=== PATIENT | male | born 1955 | race Caucasian/White ===

== ENCOUNTER → 2016-08-12 09:42 | Outpatient (CLI) | payer MEDICARE ==
[~2016-08-12 09:42] MED LIST: CELEXA10 MG PO; FLUTICASONE PRO16 GM NASAL; LOPRESSOR25 MG PO; PEPCID20 MG PO; PHOSLO667 MG PO; PREDNISONE20 MG PO; TRAZODONE HCL50 MG PO; ULTRAM50 MG PO
[2016-08-26 07:32] VITALS: BMI 19.0
== END | disposition home or self-care (01) ==
LOC: D.RT 07-30 13:00 → D.RAD 07-30 14:00 → D.RT 09:42
DX: L92.9 Granulomatous disorder of the skin and subcutaneous tissue, unspecified (principal); M30.0 Polyarteritis nodosa

== ENCOUNTER 2016-08-26 06:17 | Day surgery (SDC) | payer BC, MEDICARE ==
[2016-08-25 16:17] LABS: BASOPHILS 0.1 % (0.0-2.0); EOSINOPHILS 0.3 % (0-7); HEMATOCRIT 38.6 % (42.0-54.0); HEMOGLOBIN 12.6 g/dL (13.5-17.5); IMMATURE GRANULOCYTES 2.8 % (0-5); LYMPHOCYTES 8.4 % (15-50); MCH 32.1 pg (26.0-34.0); MCHC 32.6 g/dL (31.0-37.0); MCV 98.5 fL (80.0-100.0); MEAN PLATELET VOLUME 9.8 fL (7.4-10.4); MONOCYTES 7.2 % (2-11); NEUTROPHILS 81.2 % (40-80); PLATELET COUNT 174 10x3/uL (130-400); RBC 3.92 10x6/uL (4.20-6.10); RDW 15.4 % (11.5-14.5); WBC 18.1 10x3/uL (4.8-10.8)
[2016-08-25 16:32] LABS: ANION GAP 14.9 mmol/L (8-16); CALCIUM 8.4 mg/dL (8.5-10.1); CARBON DIOXIDE 27.8 mmol/L (21.0-32.0); POTASSIUM - SERUM 3.7 mmol/L (3.5-5.1)
[2016-08-25 16:37] LABS: INR 1.42 (0.85-1.17); PROTIME 17.3 SECONDS (11.6-15.0)
[~2016-08-26] VITALS: Ht 172.7 cm; Wt 56.7 kg
[~2016-08-26 06:17] MED LIST changes: -ULTRAM50 MG PO
[2016-08-26 07:24] LABS: BASOPHILS 0.2 % (0.0-2.0); HEMATOCRIT 36.8 % (42.0-54.0); HEMOGLOBIN 11.7 g/dL (13.5-17.5); IMMATURE GRANULOCYTES 2.9 % (0-5); LYMPHOCYTES 21.9 % (15-50); MCH 31.5 pg (26.0-34.0); MCHC 31.8 g/dL (31.0-37.0); MCV 99.2 fL (80.0-100.0); MEAN PLATELET VOLUME 9.3 fL (7.4-10.4); MONOCYTES 7.7 % (2-11); NEUTROPHILS 66.3 % (40-80); PLATELET COUNT 161 10x3/uL (130-400); RBC 3.71 10x6/uL (4.20-6.10); RDW 15.4 % (11.5-14.5)
[2016-08-26 07:27] LABS: WBC 10.2 10x3/uL (4.8-10.8)
[2016-08-26 07:32] VITALS: BP 127/76; Ht 172.7 cm; Wt 56.7 kg
[2016-08-26 09:41] LABS: APTT > 200.0 SECONDS (22.8-39.4)
[2016-08-26] MEDS ORDERED: ULTRAM50 MG PO (09:54)
--- NOTE | 2016-08-26 11:22 | NUR ---
1105 RENAL DIET SERVED.
--- NOTE | 2016-09-02 14:04 | OP ---
PATIENT NAME: GABINO WILKINS MEDICAL RECORD: [id number] :59 LOCATION:[facility] ADMISSION DATE: SURGEON: SUZANNE VIERA MD DATE OF OPERATION: 08/26/2016 PREOPERATIVE DIAGNOSIS: End-stage renal disease, on dialysis via right internal jugular tunneled dialysis catheter. POSTOPERATIVE DIAGNOSIS: End-stage renal disease, on dialysis via right internal jugular tunneled dialysis catheter. OPERATION PERFORMED: Creation of a left wrist radiocephalic vein AV fistula. SURGEON: Suzanne Viera MD ANESTHESIA: Nerve block and IV sedation per TESTING MANAGER. PREOPERATIVE NOTE: Mr. Wilkins is a 60-year-old white male patient with end-stage renal disease on dialysis, who was to have a fistula created today. DESCRIPTION OF PROCEDURE: Under regional anesthesia with IV sedation in supine position, the patient was prepped and draped in sterile manner. Topical nitroglycerin was applied to the skin of the arm and forearm and a Codi drain used as a proximal venous tourniquet. The patient's veins stood up quite nicely. He had a very nice cephalic vein at the wrist which on ultrasound was not stenotic or obstructed up to the median cubital vein. There was a large basilic vein runoff probably the dominant runoff as well as the cephalic vein in the upper arm. I elected to go ahead with a wrist fistula. The patient had a good radial pulse and normal Wong test. A longitudinal incision made at the wrist was used to expose the radial artery and cephalic vein. The vein was dissected from the surrounding structures and its tributaries divided between Vicryl ties. It was treated with topical papaverine and periodically distended hydrostatically. The vein was closed distally with Hemoclips and then transected and beveled. It was then flushed with dilute heparin solution and again hydrostatic dilatation performed. The artery was controlled proximally and distally with doubly looped Silastic tapes. The artery was occluded and an arteriotomy made and the artery then flushed proximally and distally with heparinized saline and an end-to-side vein to artery anastomosis was then completed with a running 7-0 Prolene. When completed, the occluding loops were released, and excellent flow was immediately established in the new fistula. The suture line was hemostatic and there was good flow in the radial artery distal as well as proximal to the arterial anastomosis. The wounds were irrigated with saline and irrigated and infiltrated with 0.25% Marcaine without epinephrine. A large tributary vein on the dorsum of the forearm was exposed through a small incision and ligated with Vicryl and closed distally with a metallic Hemoclips to prevent diversion of flow. That incision was closed with interrupted inverted 3-0 Vicryl subcuticular suture and Dermabond glue. The wrist incision was closed with Vicryl and then running intracuticular Monocryl and Dermabond glue. Both incisions were dressed with Maxorb Ag, Tegaderm and Cavilon skin prep. There was excellent flow in the fistula by Doppler examination and palpable pulsation at the end of the wound closure. The patient was then taken to the recovery room in stable condition where he has a good audible bruit and good capillary refill in the hand. OPERATIVE REPORT [id number] GABINO WILKINS The patient will be discharged home today, but then appointment to return to see me in my office in approximately 2 weeks. He is given prescriptions for tramadol 50, #30 one p.o. q. 4 hours p.r.n. pain, no refills. He is to continue his home medications and renal diet, and dialysis schedule as previously. He can call me if he has any problems or concerns. He is to leave the original operative dressing intact until he returns to see me. TRANSINT:[id number] Voice Confirmation ID: [id number] DOCUMENT ID: [id number] SUZANNE VIERA MD at 1404 CC: [id number] DICTATION DATE: 08/26/16 1005 NET DEVELOPMENT MANAGER: 08/26/16 1123 [facility] 08/26/16 [place] [id number]
== END 2016-08-26 12:30 | disposition home or self-care (01) ==
LOC: D.OPS 06:17 → D.PAN 08:00 → D.OPS 08:00
PROVIDERS: Surgery
DX: N18.6 End stage renal disease (principal); Z99.2 Dependence on renal dialysis

== ENCOUNTER 2016-12-25 05:59 | Emergency (ER) | payer BC, MEDICARE ==
[2016-08-26 07:32] VITALS: BMI 19.0
[~2016-12-25 05:59] MED LIST changes: +ULTRAM50 MG PO
[2016-12-25 06:32] LABS: BASOPHILS 0.2 % (0-2); EOSINOPHILS 3.7 % (0-7); HEMATOCRIT 39.5 % (42.0-54.0); HEMOGLOBIN 12.4 g/dL (13.5-17.5); IMMATURE GRANULOCYTES 0.4 % (0-5); LYMPHOCYTES 38.5 % (15-50); MCH 30.9 pg (26.0-34.0); MCHC 31.4 g/dL (31.0-37.0); MCV 98.5 fL (80.0-100.0); MEAN PLATELET VOLUME 9.9 fL (7.4-10.4); NEUTROPHILS 48.2 % (40-80); PLATELET COUNT 172 10x3/uL (130-400); RBC 4.01 10x6/uL (4.20-6.10); RDW 13.3 % (11.5-14.5); WBC 8.5 10x3/uL (4.8-10.8)
[2016-12-25 06:49] LABS: ALBUMIN 3.4 g/dL (3.4-5.0); ANION GAP 16.7 mmol/L (8-16); BILIRUBIN - TOTAL 0.32 mg/dL (0.2-1.3); CALCIUM 9.7 mg/dL (8.5-10.1); CARBON DIOXIDE 28.1 mmol/L (21.0-32.0); CREATININE - SERUM 7.3 mg/dL (0.6-1.3); POTASSIUM - SERUM 4.8 mmol/L (3.5-5.1); PROTEIN - SERUM 6.6 g/dL (6.4-8.2)
[2016-12-25 07:09] LABS: AMYLASE - SERUM 115 U/L (25-115); LIPASE 287 U/L (73-393)
[2016-12-25 07:33] LABS: APPEARANCE SLT CLOUDY (CLEAR); BACTERIA FEW /hpf (NONE SEEN); BILIRUBIN NEGATIVE (NEGATIVE); COLOR YELLOW (YELLOW); EPITHELIAL CELLS OCC /hpf (0-5); GLUCOSE NEGATIVE (NEGATIVE); KETONE NEGATIVE (NEGATIVE); LEUKOCYTE ESTERASE TRACE (NEGATIVE); NITRITE NEGATIVE (NEGATIVE); PROTEIN 3+ mg/dL (NEGATIVE); RED CELLS - URINE 25-50 /hpf (0-5); UROBILINOGEN NORMAL (NORMAL); WHITE CELLS - URINE 0-5 /hpf (0-5)
[2016-12-25 07:36] LABS: AMORPHOUS SEDIMENT <1+ /lpf (NONE SEEN); GRANULAR CAST 0-5 /lpf (NONE SEEN); MUCUS <1+ /lpf (NONE SEEN); RED CELL CAST RARE /lpf (NONE SEEN)
== END 2016-12-25 12:19 | disposition home or self-care (01) ==
LOC: D.ER 05:59
PROVIDERS: Family Medicine
DX: K52.9 Noninfective gastroenteritis and colitis, unspecified (principal); F17.200 Nicotine dependence, unspecified, uncomplicated; I12.9 Hypertensive chronic kidney disease with stage 1 through stage 4 chronic kidney disease, or unspecified chronic kidney disease; N18.9 Chronic kidney disease, unspecified; Z99.2 Dependence on renal dialysis

== ENCOUNTER 2017-02-27 18:26 | Emergency (ER) | payer BC, MEDICARE ==
[2016-08-26 07:32] VITALS: BMI 19.0
[2017-02-27 19:43] LABS: BASOPHILS 0.2 % (0-2); EOSINOPHILS 3.5 % (0-7); HEMATOCRIT 36.4 % (42.0-54.0); HEMOGLOBIN 11.5 g/dL (13.5-17.5); LYMPHOCYTES 36.9 % (15-50); MCH 30.8 pg (26.0-34.0); MCHC 31.6 g/dL (31.0-37.0); MCV 97.6 fL (80.0-100.0); MEAN PLATELET VOLUME 9.5 fL (7.4-10.4); MONOCYTES 9.8 % (2-11); NEUTROPHILS 47.6 % (40-80); PLATELET COUNT 199 10x3/uL (130-400); RBC 3.73 10x6/uL (4.20-6.10); RDW 12.8 % (11.5-14.5); WBC 9.5 10x3/uL (4.8-10.8)
== END 2017-02-27 21:24 | disposition home or self-care (01) ==
LOC: D.ER 18:26
PROVIDERS: Family Medicine
DX: L76.22 Postprocedural hemorrhage of skin and subcutaneous tissue following other procedure (principal); Z99.2 Dependence on renal dialysis; I12.9 Hypertensive chronic kidney disease with stage 1 through stage 4 chronic kidney disease, or unspecified chronic kidney disease; N18.9 Chronic kidney disease, unspecified

== ENCOUNTER → 2017-08-07 09:40 | Outpatient (CLI) | payer BC, MEDICARE ==
[2016-08-26 07:32] VITALS: BMI 19.0
== END | disposition home or self-care (01) ==
LOC: D.US 08-05 13:00
DX: R42 Dizziness and giddiness (principal)

== ENCOUNTER 2017-09-16 08:56 | Emergency (ER) | payer BC, MEDICARE ==
[2016-08-26 07:32] VITALS: BMI 19.0
[2017-09-16 09:19] LABS: BASOPHILS 0.1 % (0-2); EOSINOPHILS 0.9 % (0-7); HEMATOCRIT 37.5 % (42.0-54.0); HEMOGLOBIN 11.9 g/dL (13.5-17.5); IMMATURE GRANULOCYTES 0.4 % (0-5); LYMPHOCYTES 21.1 % (15-50); MCH 31.2 pg (26.0-34.0); MCHC 31.7 g/dL (31.0-37.0); MCV 98.2 fL (80.0-100.0); MEAN PLATELET VOLUME 9.3 fL (7.4-10.4); MONOCYTES 7.7 % (2-11); NEUTROPHILS 69.8 % (40-80); PLATELET COUNT 165 10x3/uL (130-400); RBC 3.82 10x6/uL (4.20-6.10); RDW 13.5 % (11.5-14.5); WBC 12.3 10x3/uL (4.8-10.8)
[2017-09-16 09:34] LABS: ALBUMIN 3.5 g/dL (3.4-5.0); BILIRUBIN - TOTAL 0.49 mg/dL (0.2-1.3); CALCIUM 8.6 mg/dL (8.5-10.1); CREATININE - SERUM 5.7 mg/dL (0.6-1.3)
[2017-09-16 10:33] LABS: APPEARANCE HAZY (CLEAR); BACTERIA FEW /hpf (NONE SEEN); BILIRUBIN NEGATIVE (NEGATIVE); COLOR YELLOW (YELLOW); EPITHELIAL CELLS 0-5 /hpf (0-5); GLUCOSE 50 mg/dL (NEGATIVE); KETONE NEGATIVE (NEGATIVE); MUCUS <1+ /lpf (NONE SEEN); NITRITE NEGATIVE (NEGATIVE); PROTEIN 3+ mg/dL (NEGATIVE); SPECIFIC GRAVITY 1.005 (1.005-1.020); UROBILINOGEN NORMAL (NORMAL)
[2017-09-16 10:34] LABS: GRANULAR CAST OCC /lpf (NONE SEEN)
== END 2017-09-16 10:17 | disposition home or self-care (01) ==
LOC: D.ER 08:56
PROVIDERS: Emergency Medicine
DX: R11.10 Vomiting, unspecified (principal); R10.9 Unspecified abdominal pain; Z99.2 Dependence on renal dialysis; I12.9 Hypertensive chronic kidney disease with stage 1 through stage 4 chronic kidney disease, or unspecified chronic kidney disease; N18.9 Chronic kidney disease, unspecified

== ENCOUNTER → 2017-10-05 09:32 | Outpatient (CLI) | payer BC, MEDICARE ==
[2016-08-26 07:32] VITALS: BMI 19.0
== END | disposition home or self-care (01) ==
LOC: D.CT 09:32
DX: R31.9 Hematuria, unspecified (principal); R10.30 Lower abdominal pain, unspecified

== ENCOUNTER → 2017-10-28 10:09 | Outpatient (CLI) | payer BC, MEDICARE ==
[2016-08-26 07:32] VITALS: BMI 19.0
[2017-11-02 18:09] LABS: ANCA - ANTIMYELOPEROXIDASE <9.0 U/mL (0.0-9.0); ANCA - ANTIPROTEINASE 3 <3.5 U/mL (0.0-3.5); ANCA - ATYPICAL <1:20 titer (Neg:<1:20); ANCA - CYTOPLASMIC <1:20 titer (Neg:<1:20); ANCA - PERINUCLEAR 1:40 titer (Neg:<1:20)
== END | disposition home or self-care (01) ==
LOC: D.LABREF 10:09
PROVIDERS: Internal Medicine Nephrology
DX: A50.02 Early congenital syphilitic osteochondropathy (principal)

== ENCOUNTER → 2017-11-26 07:49 | Outpatient (CLI) | payer BC, MEDICARE ==
[2016-08-26 07:32] VITALS: BMI 19.0
== END | disposition home or self-care (01) ==
LOC: D.RT 07:49
DX: M31.30 Wegener's granulomatosis without renal involvement (principal)

== ENCOUNTER → 2018-11-04 11:49 | Outpatient (CLI) | payer BC, MEDICARE ==
[2016-08-26 07:32] VITALS: BMI 19.0
== END | disposition home or self-care (01) ==
LOC: D.RAD 11:49
PROVIDERS: ATTEND Internal Medicine Nephrology
DX: R07.81 Pleurodynia (principal)

== ENCOUNTER → 2018-11-16 09:46 | Outpatient (CLI) | payer BC, MEDICARE ==
[2016-08-26 07:32] VITALS: BMI 19.0
[~2018-11-16 09:46] MED LIST changes: +BREO ELLIPTA 11 EACH INH; +CARDURA8 MG PO; +FAMOTIDINE10 MG PO; +LISINOPRIL10 MG PO; +PEPCID AC20 MG PO; -PEPCID20 MG PO; +PRINIVIL10 MG PO; +REQUIP0.5 MG PO; +REVATIO20 MG PO; +STERAPRED DS 1210 MG PO; +VIBRAMYCIN 100100 MG PO
== END | disposition home or self-care (01) ==
LOC: D.RAD 09:46
PROVIDERS: ATTEND Internal Medicine Pulmonary Disease
DX: R06.09 Other forms of dyspnea (principal)

== ENCOUNTER 2018-11-22 04:05 | Inpatient (IN) | payer BC, MEDICARE ==
[~2018-11-22] VITALS: Ht 170.2 cm; Wt 56.7 kg
[~2018-11-22 04:05] MED LIST changes: -BREO ELLIPTA 11 EACH INH; -CARDURA8 MG PO; -LISINOPRIL10 MG PO; -PEPCID AC20 MG PO; -PRINIVIL10 MG PO; -REQUIP0.5 MG PO; -REVATIO20 MG PO; -STERAPRED DS 1210 MG PO; -VIBRAMYCIN 100100 MG PO
[2018-11-22] MEDS ORDERED: REQUIP0.5 MG PO (04:19)
[2018-11-22] MEDS ORDERED: CARDURA8 MG PO (04:20)
[2018-11-22] MEDS ORDERED: VIBRAMYCIN 100100 MG PO (04:21)
[2018-11-22] MEDS ORDERED: PRINIVIL10 MG PO (04:23)
[2018-11-22] MEDS ORDERED: REVATIO20 MG PO (04:23)
[2018-11-22] MEDS ORDERED: PEPCID AC20 MG PO (04:24)
[2018-11-22 04:30] LABS: BASOPHILS 0.2 % (0-2); EOSINOPHILS 1.7 % (0-7); HEMATOCRIT 30.5 % (42.0-54.0); HEMOGLOBIN 9.8 g/dL (13.5-17.5); IMMATURE GRANULOCYTES 0.2 % (0-5); LYMPHOCYTES 28.1 % (15-50); MCH 30.6 pg (26.0-34.0); MCHC 32.1 g/dL (31.0-37.0); MCV 95.3 fL (80.0-100.0); MONOCYTES 4.5 % (2-11); NEUTROPHILS 65.3 % (40-80); PLATELET COUNT 143 10x3/uL (130-400); RDW 12.9 % (11.5-14.5); WBC 9.4 10x3/uL (4.8-10.8)
[2018-11-22 04:45] LABS: ALKALINE PHOSPHATASE 52 U/L (46-116); ALT (SGPT) 27 U/L (10-68); BILIRUBIN - TOTAL 0.41 mg/dL (0.2-1.3); CALC OSMOLALITY 300 mosm/kg (275-300); CALCIUM 8.6 mg/dL (8.5-10.1); CARBON DIOXIDE 23.8 mmol/L (21.0-32.0); CHLORIDE - SERUM 104 mmol/L (98-107); GLUCOSE 114 mg/dL (74-106); POTASSIUM - SERUM 5.5 mmol/L (3.5-5.1); PROTEIN - SERUM 6.2 g/dL (6.4-8.2); SODIUM 140 mmol/L (136-145); UREA NITROGEN 70 mg/dL (7-18); eGFR NON AFRICAN AMERICAN 5 mL/min (90-120)
--- NOTE | 2018-11-22 04:46 | NUR ---
LAB AT PT BEDSIDE. BLOOD CULTURES OBTAINED.
[2018-11-22 04:49] LABS: APTT 27.9 SECONDS (22.8-39.4); INR 1.09 (0.85-1.17); PROTIME 13.6 SECONDS (11.6-15.0)
[2018-11-22 05:11] LABS: CKMB 2.6 U/L (0.0-3.6); CREATINE KINASE 81 UL (21-232); PRO BNP 84257 pg/mL (0-125)
[2018-11-22 05:13] LABS: TROPONIN-I 0.111 ng/mL (0.000-0.060)
[2018-11-22] MEDS ORDERED: STERAPRED DS 1210 MG PO (06:50)
[2018-11-22] MEDS ORDERED: LISINOPRIL10 MG PO (06:50)
--- NOTE | 2018-11-22 07:32 | NUR ---
MORNING ROUNDS MADE. PT SITTING UP ON SIDE OF BED. DENIES PAIN AT THIS TIME. BREATHING LABORED. 2L 02 VIA NC. PT CONNECTED TO CONTINOUS O2 MONITORING. 02 SAT, 92%. DENIES FURTHER NEEDS AT THIS TIME. FALL PRECAUTIONS IN PLACE. BED LOWERED AND LOCKED. CL IN REACH. WILL CTM.
[2018-11-22 07:42] VITALS: BP 135/94
--- NOTE | 2018-11-22 08:40 | NUR ---
PT SITTING UP ON SIDE OF BED. STATES THAT HE CANT CATCH HIS BREATH, PT O2 SAT 87% ON 2L NC, RAISED PT TO 7L 02 HIGH FLOW TO RAISE O2 TO 92%. INFORMED PT TO BREATHE IN THROUGH NOSE AND OUT THROUGH MOUTH. PT APEARS ANXIOUS. NO MEDICAITON ODERS. WILL CONTACT MD FOR ORDERS.
--- NOTE | 2018-11-22 08:51 | NUR ---
CALLED DR. SANCHEZ OFFICE, SPOKE TO NURSE VEGA AND LEFT A MESSAGE WITH HER TO LEAVE WITH DR. SANCHEZ. SHE STATED SHE OR DR. SANCHEZ WOULD GET BACK WITH ME ABOUT GETTING PT ANXIETY MEDS. SHE STATED THAT DR. SANCHEZ WASNT IN THE CLINIC AT THIS TIME. NO ORDERS GIVEN AT THIS TIME.
--- NOTE | 2018-11-22 09:13 | MORECARE ---
CASE MANAGEMENT DISCHARGE SUMMARY PATIENT: GABINO MCLAUGHLIN UNIT: [id number] ADM DATE: 11/22/18 AGE: 63 : 59 SEX: M ROOM/BED: D.1211 AUTHOR: SHAWN RUSSO PHYSICIAN: REFERRING PHYSICIAN: PORSHA SANCHEZ MD DATE OF SERVICE: 11/22/18 Discharge Plan Patient Name: GABINO MCLAUGHLIN Facility: [facility]:[place] : 1955 Planned Disposition: Home Anticipated Discharge Date: Discharge Date: Expected LOS: Initial Reviewer: [email or web address] Initial Review Date: 11/22/2018 Generated: 11/22/18 10:13 am Patient Name: GABINO MCLAUGHLIN Page [phone] at 0913 All edits/amendments must be made on the electronic document DICTATION DATE: 11/22/18911 MEDICAL RECORDS ADMINISTRATOR: SANDEEP 11/22/18911 RPT#: [id number] DC DATE: STATUS: ADM IN [facility] [address] [place] [address] END OF REPORT
[2018-11-22 09:16] VITALS: BP 183/101; BMI 19.6
--- NOTE | 2018-11-22 09:20 | MORECARE ---
CASE MANAGEMENT DISCHARGE SUMMARY PATIENT: GABINO MCLAUGHLIN UNIT: [id number] ADM DATE: 11/22/18 AGE: 63 : 59 SEX: M ROOM/BED: D.1211 AUTHOR: SHAWN RUSSO PHYSICIAN: REFERRING PHYSICIAN: PORSHA SANCHEZ MD DATE OF SERVICE: 11/22/18 Discharge Plan Patient Name: GABINO MCLAUGHILN Facility: [facility]:[place] : 1955 Planned Disposition: Home Anticipated Discharge Date: Discharge Date: Expected LOS: Initial Reviewer: [email or web address] Initial Review Date: 11/22/2018 Generated: 11/22/18 10:20 am DCP- Discharge Planning Updated by [email or web address]: Enid Mills on 11/22/18 8:[address] Patient Name: GABINO MCLAUGHLIN Admission Status: ER Accout number: [id number] Admission Date: 11-22-2018 : 1955 Admission Diagnosis: Attending: PORSHA SANCHEZ Current LOS: 1 Anticipated DC Date: Planned Disposition: Home Primary Insurance: [employer] OUT OF STATE Discharge Planning Comments: CM met with patient to complete initial dc planning assessment. CM educated patient on the CM role and verbal consent given by patient to complete assessment. CM verified patient's address, phone number, and emergency contact phone numbers. Patient lives at home with FAMILY and reports He is independent in his care. At discharge patient plans to return home and feels this is a safe discharge. CM discussed availability of home health, rehab services, and medical equipment. Patient denied known discharge needs at this time. Patient reports spouse Aimee [phone] will transport her home at time of discharge. CM will continue to follow and will assist as needed with dc plans/needs. Salon Sales Consultant: Enid Mills DCPIA - Discharge Planning Initial Assessment Updated by [email or web address]: Enid Mills on 11/22/18 9:13 am * Is the patient Alert and Oriented? Yes * How many steps to enter\exit or inside your home? * PCP tara * [facility] * Preadmission Environment Home with Family * ADLs Independent * Verbal permission to speak to the caregivers and representatives has been obtained from the patient. N/A * Additional services required to return to the preadmission environment? No * Can the patient safely return to the preadmission environment? Yes * Has this patient been hospitalized within the prior 30 days at any hospital? No Last DP export: 11/22/18 8:13 a Patient Name: GABINO MCLAUGHLIN Page 30909 at 0920 All edits/amendments must be made on the electronic document DICTATION DATE: 11/22/18919 TENTERER: SANDEEP 11/22/18919 RPT#: [id number] DC DATE: STATUS: ADM IN [facility] [address] [place] [address] END OF REPORT
--- NOTE | 2018-11-22 09:26 | NUR ---
CALLED [facility] AND GOT UPDATED MED LIST FOR DR. SANCHEZ. MED REC UPDATED ON PT CHART. WILL NOTIFIY DR. SANCHEZ.
[2018-11-22] MEDS ORDERED: BREO ELLIPTA 11 EACH INH (09:34)
--- NOTE | 2018-11-22 09:37 | NUR ---
SPOKE WITH GARY AT DR. MATHEWS OFFICE, INFORMED HER THAT I UPDATED PT MED LIST AND SHE STATED THAT SHE WOULD LET DR. SANCHEZ KNOW. NO FURTHER ODERES AT THIS TIME. WILL CTM.
--- NOTE | 2018-11-22 10:01 | NUR ---
PT TOOK MEDS WITHOUT DIFFICULTY. PT SITTING UP ON SIDE OF BED. AT BEDSIDE. DENIES PAIN AT THIS TIME. BREATHING SHALLOW. O2 7L HIGH FLOW. WILL CTM. CL IN REACH.
[2018-11-22 11:57] VITALS: BP 134/66
[2018-11-22 14:47] VITALS: Ht 170.2 cm; Wt 56.7 kg
--- NOTE | 2018-11-22 15:26 | NUR ---
PT TO HD VIA WHEELCHAIR.
[2018-11-22 15:41] VITALS: BP 108/73
--- NOTE | 2018-11-22 18:59 | NUR ---
PT BACK TO ROOM FROM
[2018-11-22 21:00] VITALS: BP 121/80
--- NOTE | 2018-11-22 21:05 | NUR ---
PT UP WALKING AROUND IN ROOM WITH STANDBY ASSIST ALERT AND ORIENTED X4. PT O2-96% NO S/S OF DISTRESS AT THIS TIME. BED LOW CALL LIGHT WITHIN REACH. WILL CONTINUE TO MONITOR.
[2018-11-23 00:49] VITALS: BP 106/65
[2018-11-23 04:30] VITALS: BP 116/73
--- NOTE | 2018-11-23 04:48 | NUR ---
I have reviewed this patient and I concur with the Shift Assessment completed by the Licensed Practical Nurse today this shift.
[2018-11-23 06:53] LABS: BASOPHILS 0 % (0-2); EOSINOPHILS 0 % (0-7); HEMATOCRIT 31.5 % (42.0-54.0); HEMOGLOBIN 10.1 g/dL (13.5-17.5); IMMATURE GRANULOCYTES 0.1 % (0-5); LYMPHOCYTES 6.6 % (15-50); MCH 30.7 pg (26.0-34.0); MCHC 32.1 g/dL (31.0-37.0); MCV 95.7 fL (80.0-100.0); MEAN PLATELET VOLUME 10.2 fL (7.4-10.4); MONOCYTES 3.1 % (2-11); NEUTROPHILS 90.2 % (40-80); PLATELET COUNT 135 10x3/uL (130-400); RBC 3.29 10x6/uL (4.20-6.10); RDW 13.2 % (11.5-14.5)
[2018-11-23 07:29] LABS: ANION GAP 19.8 mmol/L (8-16); CALCIUM 8.7 mg/dL (8.5-10.1); CARBON DIOXIDE 26.2 mmol/L (21.0-32.0); CREATININE - SERUM 9.2 mg/dL (0.6-1.3)
[2018-11-23 07:32] VITALS: BP 100/63
--- NOTE | 2018-11-23 07:46 | NUR ---
MORNING ROUNDS MADE. PT SITTING UP IN BED RESTING. DENIES PAIN AT THIS TIME. PT STATES "I FEEL MUCH BETTER TODAY" VITALS STABLE AT THIS TIME. FALL PRECAUTIONS IN PLACE. BED LOWERED AND LOCKED. CL IN REACH. WILL CTM.
--- NOTE | 2018-11-23 08:39 | NUR ---
VITALS STABLE. PT TOOK MEDS THIS AM WITH BREAKFAST WITHOUT ANY DIFFICULTY. AT BEDSIDE. PT STATES HE WOULD LIKE TO GO FOR A WALK. WILL ASSIST PT WITH AMBULATION AFTER MORNING ROUNDS. NO FURTHER CONCERNS AT THIS TIME. FALL PRECAUTIONS IN PLACE. YELLOW GOWN ON. NON SKID SOCKS/ AND HOUSE SLIPPERS ON. BED LOWERED AND LOCKED. CL IN [facility]. WILL CTM .
--- NOTE | 2018-11-23 08:41 | HP ---
PATIENT: GABINO MCLAUGHLIN MEDICAL RECORD: [id number] ACCOUNT: [id number] LOCATION:D. D.1211 : [birth year] ADMISSION DATE: 11/22/18 PCP: PORSHA SANCHEZ MD HISTORY AND PHYSICAL EXAMINATION DATE OF ADMISSION: 11/22/2018 CHIEF COMPLAINT: Shortness of breath. 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 He has been on dialysis for 2-1/2 years. He has also seen Dr. Centeno for asthma/COPD. He presented to the ER with acute onset of shortness of breath. He states it comes and goes over the last couple of days. He denies any fever, but has had a few chills, no nausea, no vomiting. He is scheduled for dialysis today. Chest x-ray compared to one done recently at [facility] showed interval development of worsening patchy airspace disease in right lower lobe and left lower lobe with pulmonary edema as well. He is admitted for further evaluation and treatment. PAST MEDICAL AND SURGICAL HISTORY: He was diagnosed with Sonja's granulomatosis. In late 2015, he underwent plasmapheresis and underwent 4 doses of Rituxan. His kidney function progressively worsened and he had to be placed on dialysis. He also has reflux, anxiety, asthma and COPD. PAST SURGICAL HISTORY: He had an IVC filter placed and then removed. ALLERGIES: IT HAS BEEN REPORTED THAT HE HAS AN ALLERGY TO CODEINE, ATIVAN AND DEMEROL. I DID NOT HAVE THOSE IN MY CHART. HABITS: Former smoker, no alcohol or drugs. SOCIAL HISTORY: . He is on disability due to his medical problems. FAMILY HISTORY: Father at 64 of lung problems. Mother with history of hypertension and anxiety. REVIEW OF SYSTEMS: GENERAL: No major weight changes. HEENT: No particular sinus or allergy problems. RESPIRATORY: He sees Dr. Centeno and he has been diagnosed with asthma/COPD. GASTROINTESTINAL: He has heartburn. CARDIAC: No history of heart trouble. GENITOURINARY: No significant problems there. MUSCULOSKELETAL: No arthritic aches and pains. NEUROLOGIC: No migraines or seizures. PSYCHIATRIC: He has some anxiety/depression. HOME MEDICATIONS: Shows he is on prednisone 10 mg a day, trazodone 50 mg 1-1/2 pills at bedtime, Pepcid 20 mg twice a day, citalopram 10 mg once a day, calcium acetate 667 mg 3 capsules 3 times a day, he is on lisinopril of unknown dose on days that he is not taking dialysis. PHYSICAL EXAMINATION: VITAL SIGNS: Temperature 98.2, pulse 112, respirations 20, blood pressure 183/101, O2 sat 93% and he is up to 7 liters according to the nurse. HISTORY AND PHYSICAL [id number] GABINO MCLAUGHLIN GENERAL: He is sitting on the side of the bed, leaning over on the bedside tray. He is awake and alert, able to converse. HEENT: Grossly within normal limits. NECK: Supple. No JVD or bruit. HEART: Tachycardic. LUNGS: With scattered rales. No wheeze. ABDOMEN: Soft. EXTREMITIES: No edema. LABORATORY DATA: ABG; pH 7.47, pCO2 33.9, pO2 38. Lactic acid 1.6. CBC with a white count of 9400, hemoglobin 9.8, hematocrit 30.5. Basic metabolic panel; sodium 140, potassium 5.5, chloride 104, CO2 23.8, BUN 70, creatinine 11, glucose 114, calcium 8.6. Liver functions are normal. Troponin is elevated at 0.111. Chest x-ray with interval development of worsening patchy airspace disease, and right lower lobe and left lower lobe pulmonary edema is noted. ASSESSMENT: 1. Pneumonia. 2. Pulmonary edema. 3. Vasculitis. 4. End-stage renal disease, on dialysis. PLAN: Nephrology has been consulted. Pulmonology is being consulted. He is started on Rocephin and Zithromax, given albuterol, blood cultures times 2. We need to find out if he is truly ALLERGIC TO ATIVAN or not. Other tests and procedures as warranted. TRANSINT:[id number] Voice Confirmation ID: [id number] DOCUMENT ID: [id number] PORSHA SANCHEZ MD at 0841 CC: [id number] DICTATION DATE: 11/22/18 0937 CREELER: 11/22/18 1023 ADM IN [facility] [address] [place] [address]
--- NOTE | 2018-11-23 09:26 | NUR ---
PT TO X RAY VIA WHEELCHAIR
--- NOTE | 2018-11-23 09:41 | NUR ---
PT ON 3L O2 VIA HIGH FLOW NC. PT O2 SAT 98%, BUMPED PT O2 DOWN TO 2L VIA NC, PT O2 SAT 97 % AT THIS TIME ON 2L. WILL CONTINUE TO MONITOR PT OXYGEN.
--- NOTE | 2018-11-23 10:02 | NUR ---
PT O2 BUMPED DOWN TO 1L NC, PT O2 SAT 96 % ON 1L VIA NC. WILL CONTINUE TO MONITOR OXYGEN.
--- NOTE | 2018-11-23 10:03 | NUR ---
PT RECEIVING BREATHING TREATMENT AT THIS TIME.
--- NOTE | 2018-11-23 10:40 | NUR ---
PATIENT TAKEN OFF OXYGEN, O2 SAT 95%. PT WALKING AROUND [place], DENIES BEING SOB. YELLOW GOWN ON. NON SKID SOCKS AND HOUSE SLIPPERS ON. WALKING WITH PT. GAIT STEADY. WILL CTM.
[2018-11-23 14:50] VITALS: BP 113/70
--- NOTE | 2018-11-23 15:56 | NUR ---
I have reviewed this patient and I concur with the Shift Assessment completed by the Licensed Practical Nurse today this shift.
--- NOTE | 2018-11-23 18:56 | NUR ---
PT IN BED. DENIES NEEDS AT THIS TIME.
[2018-11-23 20:00] VITALS: BP 116/60
[2018-11-24 04:00] VITALS: BP 115/64
[2018-11-24 07:01] LABS: BASOPHILS 0 % (0-2); EOSINOPHILS 0 % (0-7); HEMOGLOBIN 9.1 g/dL (13.5-17.5); IMMATURE GRANULOCYTES 0.4 % (0-5); LYMPHOCYTES 3.3 % (15-50); MCH 31.1 pg (26.0-34.0); MCHC 32.5 g/dL (31.0-37.0); MCV 95.6 fL (80.0-100.0); MEAN PLATELET VOLUME 10.9 fL (7.4-10.4); NEUTROPHILS 93.3 % (40-80); PLATELET COUNT 154 10x3/uL (130-400); RBC 2.93 10x6/uL (4.20-6.10); RDW 13.5 % (11.5-14.5)
[2018-11-24 07:04] LABS: WBC 12.9 10x3/uL (4.8-10.8)
[2018-11-24 07:16] LABS: ANION GAP 19.1 mmol/L (8-16); CALCIUM 7.9 mg/dL (8.5-10.1); CARBON DIOXIDE 22.1 mmol/L (21.0-32.0); CREATININE - SERUM 10.9 mg/dL (0.6-1.3); PHOSPHOROUS 6.2 mg/dL (2.5-4.9); POTASSIUM - SERUM 5.2 mmol/L (3.5-5.1)
[2018-11-24 07:36] VITALS: BP 104/62
--- NOTE | 2018-11-24 07:46 | NUR ---
MORNING ROUNDS MADE. PT SITTING UP IN BED EATING BREAKFAST. DENIES PAIN AT THIS TIME. BREATHING EVEN AND UNLABORED. BED LOWERED AND LOCKED. CL IN REACH. WILL CTM .
--- NOTE | 2018-11-24 09:05 | NUR ---
VITALS STABLE. TOOK MEDS WITHOUT DIFFICULTY. DENIES FURTHER NEEDS AT THIS TIME. BED LOWERED AND LOCKED. CL IN REACH. WILL CTM.
--- NOTE | 2018-11-24 09:58 | NUR ---
PT TO HD VIA WHEELCHAIR
--- NOTE | 2018-11-24 12:34 | NUR ---
NEW LINENS APPLIED TO PT BED
--- NOTE | 2018-11-24 13:23 | NUR ---
PT BACK FROM HD VIA WHEELCHAIR.
[2018-11-24 16:02] VITALS: BP 80/52
--- NOTE | 2018-11-24 18:00 | NUR ---
I have reviewed this patient and I concur with the Shift Assessment completed by the Licensed Practical Nurse today this shift.
--- NOTE | 2018-11-24 18:12 | NUR ---
PT CURRENTLY HAVING CXR DONE IN ROOM
--- NOTE | 2018-11-24 19:00 | NUR ---
PT IN BED. DENIES NEEDS AT THIS TIME.
[2018-11-24 19:49] VITALS: BP 105/68
[2018-11-25] VITALS: BP 113/67
[2018-11-25 04:00] VITALS: BP 103/65
[2018-11-25 06:16] LABS: BASOPHILS 0 % (0-2); EOSINOPHILS 0 % (0-7); HEMATOCRIT 29.4 % (42.0-54.0); HEMOGLOBIN 9.6 g/dL (13.5-17.5); IMMATURE GRANULOCYTES 0.3 % (0-5); LYMPHOCYTES 2.8 % (15-50); MCH 31.2 pg (26.0-34.0); MCHC 32.7 g/dL (31.0-37.0); MCV 95.5 fL (80.0-100.0); MEAN PLATELET VOLUME 11.1 fL (7.4-10.4); MONOCYTES 2.1 % (2-11); NEUTROPHILS 94.8 % (40-80); PLATELET COUNT 146 10x3/uL (130-400); RBC 3.08 10x6/uL (4.20-6.10); RDW 13.5 % (11.5-14.5); WBC 12.5 10x3/uL (4.8-10.8)
[2018-11-25 06:45] LABS: ANION GAP 20.1 mmol/L (8-16); CALCIUM 8.6 mg/dL (8.5-10.1); CARBON DIOXIDE 23.3 mmol/L (21.0-32.0); CREATININE - SERUM 9.9 mg/dL (0.6-1.3)
[2018-11-25 06:48] LABS: POTASSIUM - SERUM 6.4 mmol/L (3.5-5.1)
[2018-11-25 07:26] VITALS: BP 108/61
--- NOTE | 2018-11-25 07:37 | NUR ---
ASSESSMENT COMPLETE. SL TO R FA. AVF TO L FA. DENIES ANY NEEDS AT THIS TIME.
--- NOTE | 2018-11-25 10:05 | NUR ---
MESSAGE LEFT WITH DR SANCHEZ'S NURSE TO NOTIFY THAT DR VALLE OK'D THE DISCHARGE.
[2018-11-25] MEDS ORDERED: STERAPRED DS 1210 MG PO (10:50)
[2018-11-25] MEDS ORDERED: AUGMENTIN 875-11 TAB PO (10:51)
[2018-11-25 12:15] LABS: PROCALCITONIN 0.39 ng/mL (0.00-0.08)
--- NOTE | 2018-11-25 12:50 | NUR ---
DISCHARGE TEACHING GIVEN TO PATIENT. VOICED UNDERSTANDING. SL REMOVED. CATHETER TIP INTACT. MASSEUR/MASSEUSE REMOVED.
--- NOTE | 2018-11-25 13:30 | NUR ---
DC'D HOME WITH FAMILY WITH BELONGINGS.
--- NOTE | 2018-11-25 14:46 | MORECARE ---
CASE MANAGEMENT DISCHARGE SUMMARY PATIENT: GABINO MCLAUGHLIN UNIT: [id number] ADM DATE: 11/22/18 AGE: 63 : 59 SEX: M ROOM/BED: D.1211 AUTHOR: SHAWN RUSSO PHYSICIAN: REFERRING PHYSICIAN: PORSHA SANCHEZ MD DATE OF SERVICE: 11/25/18 Discharge Plan Patient Name: GABINO MCLAUGHLIN Facility: [facility]:[place] : 1955 Planned Disposition: Home Anticipated Discharge Date: Discharge Date: 11/25/2018 Expected LOS: Initial Reviewer: [email or web address] Initial Review Date: 11/22/2018 Generated: 11/25/18 3:46 pm DCP- Discharge Planning Updated by [email or web address]: Enid Mills on 11/22/18 8:[address] Patient Name: GABINO MCLAUGHLIN Admission Status: ER Accout number: [id number] Admission Date: 11-22-2018 : 1955 Admission Diagnosis: Attending: PORSHA SANCHEZ Current LOS: 1 Anticipated DC Date: Planned Disposition: Home Primary Insurance: [employer] OUT OF STATE Discharge Planning Comments: CM met with patient to complete initial dc planning assessment. CM educated patient on the CM role and verbal consent given by patient to complete assessment. CM verified patient's address, phone number, and emergency contact phone numbers. Patient lives at home with FAMILY and reports He is independent in his care. At discharge patient plans to return home and feels this is a safe discharge. CM discussed availability of home health, rehab services, and medical equipment. Patient denied known discharge needs at this time. Patient reports spouse Aimee [phone] will transport her home at time of discharge. CM will continue to follow and will assist as needed with dc plans/needs. Grain Operations Manager: Enid Mills DCPIA - Discharge Planning Initial Assessment Updated by [email or web address]: Enid Mills on 11/22/18 9:13 am * Is the patient Alert and Oriented? Yes * How many steps to enter\exit or inside your home? * PCP tara * [facility] * Preadmission Environment Home with Family * ADLs Independent * Verbal permission to speak to the caregivers and representatives has been obtained from the patient. N/A * Additional services required to return to the preadmission environment? No * Can the patient safely return to the preadmission environment? Yes * Has this patient been hospitalized within the prior 30 days at any hospital? No Last DP export: 11/22/18 8:20 a Patient Name: GABINO MCLAUGHLIN Page 60709 at 1446 All edits/amendments must be made on the electronic document DICTATION DATE: 11/25/181444 SENIOR MEDICAL TECHNOLOGIST: SANDEEP 11/25/181444 RPT#: [id number] DC DATE:11/25/18 STATUS: DIS IN [facility] [address] [place] [address] END OF REPORT
[2018-11-26 17:09] LABS: ANCA - ANTIMYELOPEROXIDASE <9.0 U/mL (0.0-9.0); ANCA - ANTIPROTEINASE 3 <3.5 U/mL (0.0-3.5); ANCA - ATYPICAL <1:20 titer (Neg:<1:20); ANCA - CYTOPLASMIC <1:20 titer (Neg:<1:20); ANCA - PERINUCLEAR 1:40 titer (Neg:<1:20)
== END 2018-11-25 13:30 | disposition home or self-care (01) | DRG 193 ==
LOC: D.ER 04:05 → D.M3 04:45
PROVIDERS: Family Medicine; Internal Medicine Nephrology; Internal Medicine Pulmonary Disease; ADMIT Family Medicine; ATTEND Family Medicine
PROC: 5A1D70Z Performance of Urinary Filtration, Intermittent, Less than 6 Hours Per Day (ICD-10-PCS; principal; 2018-11-22)
DX: J18.1 Lobar pneumonia, unspecified organism (principal); N18.6 End stage renal disease; M31.30 Wegener's granulomatosis without renal involvement; I12.0 Hypertensive chronic kidney disease with stage 5 chronic kidney disease or end stage renal disease; M30.0 Polyarteritis nodosa; I77.6 Arteritis, unspecified; Z99.2 Dependence on renal dialysis; J43.9 Emphysema, unspecified; K21.9 Gastro-esophageal reflux disease without esophagitis; E87.5 Hyperkalemia; Z87.891 Personal history of nicotine dependence

== ENCOUNTER → 2018-12-03 10:27 | Outpatient (CLI) | payer BC, MEDICARE ==
[2018-11-22 14:47] VITALS: BMI 19.5
[~2018-12-03 10:27] MED LIST changes: +AUGMENTIN 875-11 TAB PO; +BREO ELLIPTA 11 EACH INH; +CARDURA8 MG PO; +LISINOPRIL10 MG PO; +PEPCID AC20 MG PO; +PRINIVIL10 MG PO; +REQUIP0.5 MG PO; +REVATIO20 MG PO; +STERAPRED DS 1210 MG PO; +VIBRAMYCIN 100100 MG PO
== END | disposition home or self-care (01) ==
LOC: D.RT 10:27
PROVIDERS: ATTEND Internal Medicine Pulmonary Disease
DX: J44.9 Chronic obstructive pulmonary disease, unspecified (principal)

== ENCOUNTER 2019-01-04 20:52 | Emergency (ER) | payer MEDICARE, BC ==
[~2019-01-04] VITALS: Ht 170.2 cm; Wt 55.0 kg
[2019-01-04 20:56] VITALS: Ht 170.2 cm; Wt 55.0 kg
[2019-01-04 22:07] LABS: BASOPHILS 0.1 % (0-2); EOSINOPHILS 1.2 % (0-7); HEMATOCRIT 34.2 % (42.0-54.0); IMMATURE GRANULOCYTES 0.6 % (0-5); LYMPHOCYTES 25.6 % (15-50); MCH 31.3 pg (26.0-34.0); MCHC 32.2 g/dL (31.0-37.0); MCV 97.2 fL (80.0-100.0); MEAN PLATELET VOLUME 9.6 fL (7.4-10.4); MONOCYTES 7.5 % (2-11); PLATELET COUNT 181 10x3/uL (130-400); RBC 3.52 10x6/uL (4.20-6.10); RDW 14.6 % (11.5-14.5); WBC 9.7 10x3/uL (4.8-10.8)
[2019-01-04 22:20] LABS: INR 0.98 (0.85-1.17); PROTIME 12.5 SECONDS (11.6-15.0)
[2019-01-04 22:25] LABS: ALBUMIN 2.9 g/dL (3.4-5.0); ALKALINE PHOSPHATASE 67 U/L (46-116); ALT (SGPT) 14 U/L (10-68); BILIRUBIN - TOTAL 0.42 mg/dL (0.2-1.3); CALC OSMOLALITY 286 mosm/kg (275-300); CALCIUM 8.5 mg/dL (8.5-10.1); CARBON DIOXIDE 27.6 mmol/L (21.0-32.0); CHLORIDE - SERUM 99 mmol/L (98-107); CREATININE - SERUM 8.7 mg/dL (0.6-1.3); GLUCOSE 87 mg/dL (74-106); POTASSIUM - SERUM 5.8 mmol/L (3.5-5.1); PROTEIN - SERUM 6.3 g/dL (6.4-8.2); SODIUM 137 mmol/L (136-145); UREA NITROGEN 53 mg/dL (7-18); eGFR NON AFRICAN AMERICAN 7 mL/min (90-120)
[2019-01-04 22:42] LABS: CKMB 1.8 U/L (0.0-3.6); CREATINE KINASE 39 UL (21-232)
[2019-01-04 22:45] LABS: TROPONIN-I 0.062 ng/mL (0.000-0.060)
[2019-01-05] MEDS ORDERED: HYDROCODON-ACE1 EA10 PO (00:28)
[2019-01-05 02:00] VITALS: BP 138/86
== END 2019-01-05 02:00 | disposition home or self-care (01) ==
LOC: D.ER 20:52
PROVIDERS: Emergency Medicine
DX: M13.0 Polyarthritis, unspecified (principal); A50.02 Early congenital syphilitic osteochondropathy; J44.9 Chronic obstructive pulmonary disease, unspecified; N19 Unspecified kidney failure; I10 Essential (primary) hypertension; F32.9 Major depressive disorder, single episode, unspecified; F17.210 Nicotine dependence, cigarettes, uncomplicated

== ENCOUNTER → 2019-01-11 07:02 | Outpatient (CLI) | payer MEDICARE, BC ==
[2019-01-04 20:56] VITALS: BMI 19.0
[~2019-01-11 07:02] MED LIST changes: +HYDROCODON-ACE1 EA10 PO
== END | disposition home or self-care (01) ==
LOC: D.CT 01-04 08:00
PROVIDERS: ATTEND Radiology Diagnostic Radiology
DX: M79.605 Pain in left leg (principal); M79.604 Pain in right leg; R20.0 Anesthesia of skin

== ENCOUNTER 2019-01-30 22:19 | Inpatient (IN) | payer MEDICARE, BC ==
[~2019-01-30] VITALS: Ht 170.2 cm; Wt 56.7 kg
[2019-01-30 22:50] LABS: BASOPHILS 0.1 % (0-2); EOSINOPHILS 1.1 % (0-7); HEMATOCRIT 34.3 % (42.0-54.0); HEMOGLOBIN 11.1 g/dL (13.5-17.5); IMMATURE GRANULOCYTES 0.3 % (0-5); LYMPHOCYTES 15.9 % (15-50); MCH 31.7 pg (26.0-34.0); MCHC 32.4 g/dL (31.0-37.0); MEAN PLATELET VOLUME 10.4 fL (7.4-10.4); NEUTROPHILS 77.6 % (40-80); PLATELET COUNT 153 10x3/uL (130-400); RDW 14.9 % (11.5-14.5); WBC 9.2 10x3/uL (4.8-10.8)
--- NOTE | 2019-01-30 22:52 | NUR ---
PT IS A DIALYSIS PATIENT WITH LAST DIALYSIS ON THURSDAY - HE IS DUE FOR DIALYSIS TOMORROW - HE REPORTS THAT HE HAS NOT MISSED ANY OF HIS DIALYSIS APPTS. PT REPORTS ACUTE ONSET OF SOB WITH EXERTION "A COUPLE OF HOURS AGO" - PT DENIES N/V - REPORTS PAIN TO THE EPIGASTRIC REGION AT 4/10 - - PT IS AAOX4 - SINUS TACH ON THE MONITOR. AT BEDSIDE - PT ALSO REPORTED THAT HE MOWING THE GRASS EARLIER "BUT I HAD A MASK ON LIKE THEY TOLD ME TO DO" - LEFT ARM RESERVE D/T FISTULA -
--- NOTE | 2019-01-30 23:04 | NUR ---
REPORT GIVEN TO RONAK BENITEZ USING SBAR
[2019-01-30 23:07] LABS: APTT 28.8 SECONDS (22.8-39.4); PROTIME 12.7 SECONDS (11.6-15.0)
[2019-01-30 23:36] LABS: ALKALINE PHOSPHATASE 61 U/L (46-116); ALT (SGPT) 21 U/L (10-68); BILIRUBIN - TOTAL 0.46 mg/dL (0.2-1.3); CALC OSMOLALITY 305 mosm/kg (275-300); CALCIUM 9.6 mg/dL (8.5-10.1); CARBON DIOXIDE 25.9 mmol/L (21.0-32.0); CHLORIDE - SERUM 104 mmol/L (98-107); CREATINE KINASE 55 UL (21-232); CREATININE - SERUM 10.6 mg/dL (0.6-1.3); GLUCOSE 107 mg/dL (74-106); POTASSIUM - SERUM 6.2 mmol/L (3.5-5.1); PROTEIN - SERUM 6.6 g/dL (6.4-8.2); SODIUM 142 mmol/L (136-145); UREA NITROGEN 77 mg/dL (7-18); eGFR NON AFRICAN AMERICAN 5 mL/min (90-120)
[2019-01-30 23:37] LABS: PRO BNP 72268 pg/mL (0-125)
[2019-01-30 23:38] LABS: TROPONIN-I 0.108 ng/mL (0.000-0.060)
[2019-01-31] VITALS (8 sets, daily range): BP systolic 101–179; BP diastolic 63–115; Ht 170.2 cm; Wt 56.7 kg
--- NOTE | 2019-01-31 02:55 | NUR ---
ARIVED FROM ER VIA STRETCHER ASSISTED TO BED BY AMBULATION BUT WAS TOTAL ASSIST. SKIN WARM AND DRY LUNGS WITH LITTLE AIR FLOW IV FLUSHED AND PATENT TO RT AC BUT BLOOD IAS NOTED UNDER THE OPSITE MED REC AND HISTORY DONE
[2019-01-31] MEDS ORDERED: PREDNISONE10 MG PO (03:00)
[2019-01-31] MEDS ORDERED: ALBUTEROL SULF8.5 GM INH (03:01)
--- NOTE | 2019-01-31 03:46 | NUR ---
PT REFUSES SCD "DUE TO RESTLESS LEG SYNDROME" PT IS MOVING LEGS AND WILDLY AT TIMES...NO TELEMETRY IS AVAILABLE AND DENIES CPM AT THIS TIME
--- NOTE | 2019-01-31 04:42 | NUR ---
I have reviewed this patient and I concur with the Shift Assessment completed by the Licensed Practical Nurse today this shift.
--- NOTE | 2019-01-31 16:30 | NUR ---
ARRIVE BACK TO ROOM VIA WHEELCHAIR FROM DIALYSIS. ALERT AND ORIENTED X4. DENIES ANY NEEDS AT THIS TIME. CONTINUE PLAN OF CARE AND SAFETY PRECAUTIONS.
--- NOTE | 2019-01-31 19:52 | NUR ---
AWAKE AND ALERT AT THUIS TIME BED LOW AND LOCKED AND PT HAS CALL LIGHT WENT OVER MEDS AGAIN WITH SHE REQUESTEDLCTA PT ON 4L O2 LCTA
[2019-02-01 00:10] VITALS: BP 109/72
[2019-02-01 04:00] VITALS: BP 109/77
[2019-02-01 06:27] LABS: BASOPHILS 0.2 % (0-2); EOSINOPHILS 1.4 % (0-7); HEMATOCRIT 29.8 % (42.0-54.0); HEMOGLOBIN 9.4 g/dL (13.5-17.5); IMMATURE GRANULOCYTES 0.2 % (0-5); LYMPHOCYTES 26.2 % (15-50); MCH 31.2 pg (26.0-34.0); MCHC 31.5 g/dL (31.0-37.0); MEAN PLATELET VOLUME 10.3 fL (7.4-10.4); MONOCYTES 6.7 % (2-11); NEUTROPHILS 65.3 % (40-80); PLATELET COUNT 136 10x3/uL (130-400); RBC 3.01 10x6/uL (4.20-6.10); RDW 14.9 % (11.5-14.5)
[2019-02-01 06:36] LABS: WBC 6.6 10x3/uL (4.8-10.8)
[2019-02-01 06:49] LABS: ANION GAP 13.2 mmol/L (8-16); CALCIUM 8.4 mg/dL (8.5-10.1); CARBON DIOXIDE 30.9 mmol/L (21.0-32.0); PHOSPHOROUS 5.4 mg/dL (2.5-4.9)
[2019-02-01 06:50] LABS: CREATININE - SERUM 6.9 mg/dL (0.6-1.3); POTASSIUM - SERUM 5.1 mmol/L (3.5-5.1)
[2019-02-01 09:21] VITALS: BP 98/58
[2019-02-01 13:54] VITALS: BP 155/66
--- NOTE | 2019-02-01 19:10 | NUR ---
PT UP AMBULATING WELL LCTA SLIGHT SOB WHEN OFF OF O2 WHICH SITS AT 4L SKIN WARM AND DRY DENIES PAIN
[2019-02-01 20:00] VITALS: BP 106/68
--- NOTE | 2019-02-01 22:05 | NUR ---
DIALYSIS COORDINATOR: [facility] MWF @ 6:00AM. [place].
[2019-02-02] VITALS: BP 115/69
--- NOTE | 2019-02-02 03:01 | NUR ---
I have reviewed this patient and I concur with the Shift Assessment completed by the Licensed Practical Nurse today this shift.
[2019-02-02 04:00] VITALS: BP 113/75
[2019-02-02 06:07] LABS: BASOPHILS 0 % (0-2); EOSINOPHILS 2.5 % (0-7); HEMATOCRIT 28.8 % (42.0-54.0); HEMOGLOBIN 9.2 g/dL (13.5-17.5); IMMATURE GRANULOCYTES 0.2 % (0-5); LYMPHOCYTES 26.6 % (15-50); MCH 31.5 pg (26.0-34.0); MCHC 31.9 g/dL (31.0-37.0); MCV 98.6 fL (80.0-100.0); MONOCYTES 7.2 % (2-11); NEUTROPHILS 63.5 % (40-80); PLATELET COUNT 124 10x3/uL (130-400); RBC 2.92 10x6/uL (4.20-6.10); RDW 14.8 % (11.5-14.5); WBC 5.5 10x3/uL (4.8-10.8)
[2019-02-02 06:21] LABS: ANION GAP 13.4 mmol/L (8-16); CALCIUM 8.3 mg/dL (8.5-10.1); CARBON DIOXIDE 28.8 mmol/L (21.0-32.0); CREATININE - SERUM 9.4 mg/dL (0.6-1.3); PHOSPHOROUS 6.4 mg/dL (2.5-4.9); POTASSIUM - SERUM 4.2 mmol/L (3.5-5.1)
[2019-02-02] MEDS ORDERED: GABAPENTIN100 MG PO (07:52)
[2019-02-02] MEDS ORDERED: TRAZODONE HCL150 MG PO (07:53)
--- NOTE | 2019-02-02 09:14 | NUR ---
RX'S FOR TRAZADONE AND GABAPENTIN ISSUED TO [facility]. SPOKE WITH TATUM, PHARMACIST.
--- NOTE | 2019-02-02 16:50 | MORECARE ---
CASE MANAGEMENT DISCHARGE SUMMARY PATIENT: GABINO MCLAUGHLIN UNIT: [id number] ADM DATE: 01/31/19 AGE: 63 : 59 SEX: M ROOM/BED: D.2100 AUTHOR: KARAN,DOC PHYSICIAN: REFERRING PHYSICIAN: GEE SOLANO MD DATE OF SERVICE: 02/02/19 Discharge Plan Patient Name: GABINO MCLAUGHLIN Facility: [facility]:[place] : 1955 Planned Disposition: Home Anticipated Discharge Date: 02/02/19 Discharge Date: 02/02/2019 Expected LOS: 2 Initial Reviewer: [email or web address] Initial Review Date: 02/02/2019 Generated: 02/02/19 5:50 pm Comments DCP- Discharge Planning Updated by [email or web address]: Gerard Addison on 02/02/19 3:[address] Patient Name: GABINO MCLAUGHLIN Admission Status: ER Accout number: [id number] Admission Date: 01-31-2019 : 1955 Admission Diagnosis: Attending: GEE SOLANO Current LOS: 2 Anticipated DC Date: 02-02-2019 Planned Disposition: Home Primary Insurance: MEDICARE A & B Discharge Planning Comments: CM MET WITH PT IN ROOM TO DISCUSS DISCHARGE PLANNING AND NEEDS. PT REPORTS LIVING AT HOME INDEPENDENTLY WITH HIS . PT HAS CANE AND WALKER WITH NO MEDICAL EQUIPMENT PROVIDER PREFERENCE. PT HAS NO OUTSIDE SERVICES ASSISTING IN THE HOME. PT GOES TO OUTPATIENT DIALYSIS MWF, 0600AM AT [facility] IN [place], HE OR HIS TRANSPORTS. CM DISCUSSED AVAILABILITY OF HOME HEALTH, REHAB SERVICES AND MEDICAL EQUIPMENT. PT DENIES DISCHARGE NEEDS, REPORTS HIS WILL PICK HIM UP FOR DISCHARGE HOME. IMPORTANT MESSAGE FROM MEDICARE PROVIDED AND EXPLAINED. Dragline Oiler: Gerard Addison DCPIA - Discharge Planning Initial Assessment Updated by [email or web address]: Gerard Addison on 02/02/19 4:47 pm * Is the patient Alert and Oriented? Yes * How many steps to enter\exit or inside your home? NONE * PCP DR. SANCHEZ * Pharmacy [facility] * Preadmission Environment Home with Family * ADLs Independent * Equipment Cane Walker * Other Equipment NO MEDICAL EQUIPMENT PROVIDER PREFERNCE * List name and contact numbers for known caregivers / representatives who currently or will assist patient after discharge: EDWARDO MCLAUGHLIN, SPOUSE, * Verbal permission to speak to the caregivers and representatives has been obtained from the patient. N/A * Community resources currently utilized Other * Please name any agencies selected above. OUTPATIENT DIALYSIS, [facility], MWF 0600, PT OR [facility]SE DRIVES * Additional services required to return to the preadmission environment? No * Can the patient safely return to the preadmission environment? Yes * Has this patient been hospitalized within the prior 30 days at any hospital? No Coverage Notice Reviewer: [email or web address] Micah Addison Notice Issued Date-Time: 02/02/2019 7:50 Notice Type: IM Discharge Notice Notice Delivered To: Patient Relationship to Patient: Privacy Attorney Name: Delivery Method: HAND - Hand Delivered Belinda Days: Prior Verbal Notification: Recipient Understood Notice: Yes Recipient Signature: Yes Med Rec Note Co-signed by Attending: Coverage Notice Comment: Patient Name: GABINO MCLAUGHLIN Page 31066 at 1650 All edits/amendments must be made on the electronic document DICTATION DATE: 02/02/191649 CELLULAR PLASTICS CUTTER: SANDEEP 02/02/19 165 RPT#: [id number] DC DATE:02/02/19 STATUS: DIS IN [facility] [address] [place] [address] END OF REPORT
--- NOTE | 2019-02-03 06:08 | DS ---
PATIENT:GABINO WILKINS :59 MEDICAL RECORD: [id number] DISCHARGE SUMMARY ADMISSION DATE: 01/31/19 DISCHARGE DATE: 02/02/19 HISTORY OF PRESENT ILLNESS: Mr. Wilkins is a 63-year-old white male with end-stage renal disease and chronic suppressive steroid therapy with a diagnosis of Sonja granulomatosis. He has been stable; however, does have volume weight gains on weekends. He was readmitted with another episode of shortness of breath. HOSPITAL COURSE: The patient underwent acute dialysis and improved. He was seen by pulmonary and postdialysis chest x-ray was improved. He did have 1 episode of mild hemoptysis. Pulmonary did not think this was related to his Sonja granulomatosis. A followup ankle level is pending. He was requesting discharge and was back to baseline. DISCHARGE DIAGNOSES: 1. Volume overload relieved with dialysis. 2. Sonja granulomatosis on chronic steroid therapy. 3. Hypertension. 4. End-stage renal disease, chronic dialysis. PLAN: The patient will be discharged today. He will resume his home meds, diet, and dialysis. We will follow him in dialysis. DISCHARGE MEDICATIONS: Trazodone 150 bedtime, Neurontin 200 bedtime, doxazosin 4 mg at bedtime, prednisone 10 daily, Pepcid 20 b.i.d., Celexa 10 daily, lisinopril 10 daily, and PhosLo 1 t.i.d. TRANSINT:[id number] Voice Confirmation ID: [id number] DOCUMENT ID: [id number] MEL TRIVEDI MD at 0608 CC: [id number] DICTATION DATE: 02/02/19 0654 CUSTOMER SUPPORT PROFESSIONAL: 02/02/19 0708 DIS IN 02/02/19 [id number] [place] [address]
[2019-02-04 15:10] LABS: ANCA - ANTIMYELOPEROXIDASE <9.0 U/mL (0.0-9.0); ANCA - ANTIPROTEINASE 3 <3.5 U/mL (0.0-3.5); ANCA - ATYPICAL <1:20 titer (Neg:<1:20); ANCA - CYTOPLASMIC <1:20 titer (Neg:<1:20); ANCA - PERINUCLEAR 1:40 titer (Neg:<1:20)
== END 2019-02-02 09:26 | disposition home or self-care (01) | DRG 291 ==
LOC: D.ER 22:19 → OBSVTIME 01-31 02:10 → D.M2 01-31 02:10
PROVIDERS: Family Medicine; Internal Medicine Nephrology; ADMIT Internal Medicine Nephrology; ATTEND Internal Medicine Nephrology
DX: I13.2 Hypertensive heart and chronic kidney disease with heart failure and with stage 5 chronic kidney disease, or end stage renal disease (principal); N18.6 End stage renal disease; I50.41 Acute combined systolic (congestive) and diastolic (congestive) heart failure; M31.31 Wegener's granulomatosis with renal involvement; J81.1 Chronic pulmonary edema; Z99.2 Dependence on renal dialysis; J44.9 Chronic obstructive pulmonary disease, unspecified; E87.5 Hyperkalemia; Z72.0 Tobacco use

== ENCOUNTER → 2019-06-24 10:26 | Outpatient (CLI) | payer MEDICARE, BC ==
[2019-01-31 14:44] VITALS: BMI 19.6
[~2019-06-24 10:26] MED LIST changes: +ALBUTEROL SULF8.5 GM INH; +GABAPENTIN100 MG PO; +PREDNISONE10 MG PO; +TRAZODONE HCL150 MG PO
== END | disposition home or self-care (01) ==
LOC: D.RAD 10:25
PROVIDERS: ATTEND Internal Medicine Pulmonary Disease
DX: I50.9 Heart failure, unspecified (principal)

== ENCOUNTER → 2020-02-23 08:15 | Outpatient (CLI) | payer MEDICARE, BC ==
[2019-01-31 14:44] VITALS: BMI 19.6
--- NOTE | 2020-02-25 11:00 | EC ---
PATIENT:GABINO MCLAUGHLIN DATE OF SERVICE: 02/23/20 SEX: M MEDICAL RECORD: [id number] DATE OF : 59 [facility] AGE OF PATIENT: 64 ADMISSION DATE: 02/23/20 REFERRING PHYSICIAN: INTERPRETING PHYSICIAN: CECY WETZEL MD ECHOCARDIOGRAM REPORT ECHO CHARGES 4 ECHO COMPLETE Date: 02/23/20 CLINICAL DIAGNOSIS: CHF ECHOCARDIOGRAPHIC MEASUREMENTS (adult normal given) AC root (d.<3.7cm) 3.2 cm LV Septum d (<1.2 cm> 1.3 cm Valve Excursion 1.4 cm LV Septum (systole) 1.4 cm Left Atria (s.<4.0cm> 2.8 cm LVPW d(<1.2cm) 1.0 cm RV (d.<2.3cm) 2.1 cm LVPW (sytole) 1.3 cm LV diastole(<5.6CM) 5.4 cm MV E-F(>70mm/sec) cm LV systole 4.6 cm LVOT Diameter 1.9 cm MV exc.(>10mm) 1.2 cm Est.ejection fraction (50-75%) % DOPPLER: LVIT cm/sec A 64 cm/sec E 65 cm/sec LA cm/sec RVSP 16 mmHg LVOT 78 cm/sec AOP1/2T m/s Asc. 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 Dueñas TAPE# PACS Pericardial Effusion N DATE OF SERVICE: 02/23/2020 Adequate 2D, color flow imaging, spectral Doppler, and M-Mode. LVH present. LV internal dimension is normal. Wall motion is normal. EF is greater than or equal to 55%. Aortic valve is tricuspid, good valve excursion. No significant AI. Left atrium is normal. Mitral valve shows no prolapse. Trivial MR. Right-sided chambers are grossly normal. Trivial TR. TRANSINT:[id number] Voice Confirmation ID: [id number] DOCUMENT ID: [id number] ECHOCARDIOGRAM REPORT [id number] LISSETTE,GABINO ANNCECY WELLER MD at 1100 CC: [id number] DICTATION DATE: 02/23/20 1432 BUNDLE CUTTER: 02/23/202034 DEP CLI 02/23/20 [id number] [place] [address]
== END | disposition home or self-care (01) ==
LOC: D.ECHO 08:15
PROVIDERS: ATTEND Internal Medicine Pulmonary Disease
DX: I50.9 Heart failure, unspecified (principal); J45.909 Unspecified asthma, uncomplicated; J44.9 Chronic obstructive pulmonary disease, unspecified

== ENCOUNTER → 2020-11-13 09:54 | Outpatient (CLI) | payer MEDICARE, BC ==
[2020-05-15 02:58] VITALS: BMI 21.5
== END | disposition home or self-care (01) ==
LOC: D.RAD 09:54
PROVIDERS: ATTEND Family Medicine
DX: J44.9 Chronic obstructive pulmonary disease, unspecified (principal)